=== PATIENT | male | born 1975 | race Caucasian/White ===

== ENCOUNTER 2019-06-22 17:59 | Emergency (ER) | payer MEDICAID ==
[2019-06-22 18:09] VITALS: BP 156/95
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
--- NOTE | 2019-06-22 19:19 | XRAY Report ---
Reason: R 5th digit smashed Procedure Date: 06/22/2019 Accession Number: [id number] / [id number] Procedure: XR - Finger(s) RT CPT Code: FULL RESULT: EXAM: RIGHT FIFTH DIGIT RADIOGRAPHY EXAM DATE: 06/22/2019 06:43 PM. CLINICAL HISTORY: Right 5th digit smashed. COMPARISON: None. TECHNIQUE: 3 views. FINDINGS: Bones: Suspect old healed fracture deformity at the fifth metacarpal. No evidence for acute fracture. Joints: Normal. No subluxations. Soft Tissues: Fifth digit distal soft tissue swelling suspected. No evidence for acute fracture. IMPRESSION: Fifth digit distal soft tissue swelling suspected. No evidence for acute fracture. [facility]
== END 2019-06-22 19:45 | disposition home or self-care (01) ==
LOC: ED 17:59
DX: S61.216A Laceration without foreign body of right little finger without damage to nail, initial encounter (principal); W23.0XXA Caught, crushed, jammed, or pinched between moving objects, initial encounter
CPT/HCPCS: 12001; 73140; 99283